=== PATIENT | female | born 1930 | race Caucasian/White ===

== ENCOUNTER 2021-10-07 11:52 | Emergency (ER) | payer MEDICARE, BC, OTHER ==
[~2021-10-07] VITALS: Ht 160 cm; Wt 57.2 kg
[2021-10-07] MEDS ORDERED: ACETAMINOPHEN 325 MG TAB PO ONE (12:45)
[2021-10-07] MEDS ORDERED: HYDROCODONE/APAP 5MG-325MG TAB PO ONE (14:45)
[2021-10-07] MEDS ORDERED: ONDANSETRON HCL 4 MG ORAL DISINTEGRATING TAB PO ONE (14:45)
== END 2021-10-07 16:27 | disposition home or self-care (01) ==
LOC: ER 12:16
DX: S70.01XA Contusion of right hip, initial encounter (principal); W01.0XXA Fall on same level from slipping, tripping and stumbling without subsequent striking against object, initial encounter; Y93.01 Activity, walking, marching and hiking; Y92.89 Other specified places as the place of occurrence of the external cause; I10 Essential (primary) hypertension; E11.9 Type 2 diabetes mellitus without complications
CPT/HCPCS: 72192; 73502; 99283; Q0162

== ENCOUNTER 2021-10-26 16:00 | Inpatient (IN) | payer MEDICARE, BC, OTHER ==
[~2021-10-26] VITALS: Ht 157.5 cm; Wt 57.2 kg
[2021-10-26] MEDS ORDERED: HYDROCODONE/APAP 5MG-325MG TAB PO ONE (19:00)
[2021-10-26] MEDS ORDERED: FENTANYL CITRATE/PF 100MCG/2 ML INJ IV ONE (19:15)
[2021-10-26] MEDS: ONDANSETRON HCL INJ 2MG/ML 2ML 2 MG/ML VIAL IV PRN (19:20)
[2021-10-26] MEDS ORDERED: Morphine 4mg INJECTION 4 MG/ML INJ IV PRN (19:30)
[2021-10-26] MEDS ORDERED: ONDANSETRON HCL INJ 2MG/ML 2ML 2 MG/ML VIAL IV PRN (19:30)
[2021-10-26] MEDS: HYDRALAZINE HCL 20 MG/ML VIAL IV PRN (20:11)
[2021-10-26 20:51] VITALS: BP 149/60
[2021-10-26 21:00] VITALS: BP_SYST 149
[2021-10-26] MEDS ORDERED: HEPARIN SOD (PORCINE) 5,000 UNIT/ML VIAL SC ONE (21:45)
[2021-10-26 23:59] VITALS: BP 152/65
[2021-10-27] VITALS (7 sets, daily range): BP systolic 115–169; BP diastolic 53–78
[2021-10-27] MEDS: HYDROMORPHONE 1MG/1ML INJ IV PRN ×3 (00:26→13:10)
[2021-10-27] MEDS ORDERED: METFORMIN HCL500 MG PO (03:49)
[2021-10-27] MEDS ORDERED: LOSARTAN POTAS100 MG PO (03:49)
[2021-10-27] MEDS ORDERED: VITAMIN B-12 51 EACH SL (03:49)
[2021-10-27 06:11] LABS: BASOPHILS % 0.5 % (0.0-1.0); EOSINOPHILS % 0.5 % (0.0-6.0); HEMATOCRIT 39.5 % (34.2-44.1); HEMOGLOBIN 12.6 g/dL (12.0-16.0); LYMPHOCYTES # (AUTO) 1.4 (1.0-3.2); LYMPHOCYTES % 21.6 % (18.0-39.1); MEAN CORPUSCULAR HGB CONC 31.9 g/dL (31-35); MEAN CORPUSCULAR VOLUME 97.3 fL (81-99); MONOCYTES # (AUTO) 0.8 (0.2-0.8); MONOCYTES % 12.4 % (4.4-11.3); NEUTROPHILS # (AUTO) 4.3 (2.1-6.9); NEUTROPHILS % 64.5 % (38.7-80.0); PLATELET COUNT 312 x10e3/uL (140-360); RED BLOOD COUNT 4.06 x10e6/uL (3.6-5.1); RED CELL DISTRIBUTION WIDTH 13.1 % (11.7-14.4)
[2021-10-27 06:24] LABS: INR 0.92; PARTIAL THROMBOPLASTIN TIME 27.4 seconds (23.8-35.5); PROTHROMBIN TIME 13.2 seconds (11.9-14.5)
[2021-10-27 07:09] LABS: ALBUMIN 3.4 g/dL (3.5-5.0); ANION GAP 14.8 mmol/L (8-16); CALCIUM 8.5 mg/dL (8.4-10.2); CREATININE, SERUM 1.2 mg/dL (0.57-1.11); POTASSIUM 4.8 mmol/L (3.5-5.1)
[2021-10-27] MEDS ORDERED: ACETAMINOPHEN 325 MG TAB PO PRN (10:30)
[2021-10-27] MEDS ORDERED: DOCUSATE SODIUM 100 MG CAP PO PRN (10:30)
[2021-10-27] MEDS ORDERED: DEXTROSE 50% SYRINGE 50 ML IV PRN (10:30)
[2021-10-27 10:54] LABS: CHOL/HDL RATIO 3.7 (3.0-3.6)
[2021-10-27] MEDS: METOPROLOL TARTRATE 25 MG TAB PO SCH ×2 (11:00→21:00)
[2021-10-27] MEDS ORDERED: SODIUM CHLORIDE 0.45% 1,000 ML IV ONE (11:00)
[2021-10-27] MEDS: INSULIN REGULAR, HUMAN 100 UNIT/1 ML SQ SCH ×3 (11:30→21:00)
[2021-10-27] MEDS: HYDRALAZINE HCL 20 MG/ML VIAL IV PRN (12:18)
[2021-10-27] MEDS: OYST-CAL-D 500MG TABLET PO SCH ×2 (15:00→21:00)
[2021-10-27] MEDS ORDERED: Vancomycin IV 1 GM VIAL ONE (20:34)
[2021-10-27] MEDS ORDERED: BUPIVACAINE 0.25% 30ML SDV ONE (20:35)
[2021-10-27] MEDS ORDERED: Vancomycin IV 500 MG ONE (20:35)
[2021-10-27] MEDS ORDERED: SODIUM CHLORIDE 0.9% 250ML 250 ML ONE (20:38)
[2021-10-27] MEDS ORDERED: SUGAMMADEX SODIUM 200 MG/2 ML VIAL IV ONE (20:38)
[2021-10-27] MEDS ORDERED: Vancomycin IV 1 GM in SODIUM CHLORIDE 0.9% 250ML 250 ML IV ONE (21:45)
[2021-10-28 00:28] VITALS: BP 135/63
[2021-10-28 04:30] VITALS: BP 112/53
[2021-10-28] MEDS: HYDROCODONE/APAP 5MG-325MG TAB PO PRN ×2 (04:45→16:35)
[2021-10-28 04:51] LABS: BASOPHILS % 0.1 % (0.0-1.0); HEMATOCRIT 35.2 % (34.2-44.1); HEMOGLOBIN 11.4 g/dL (12.0-16.0); LYMPHOCYTES # (AUTO) 0.5 (1.0-3.2); LYMPHOCYTES % 5.1 % (18.0-39.1); MEAN CORPUSCULAR HEMOGLOBIN 31.1 pg (28-32); MEAN CORPUSCULAR HGB CONC 32.4 g/dL (31-35); MEAN CORPUSCULAR VOLUME 96.2 fL (81-99); MONOCYTES # (AUTO) 0.9 (0.2-0.8); MONOCYTES % 8.3 % (4.4-11.3); NEUTROPHILS # (AUTO) 8.8 (2.1-6.9); PLATELET COUNT 251 x10e3/uL (140-360); RED BLOOD COUNT 3.66 x10e6/uL (3.6-5.1); RED CELL DISTRIBUTION WIDTH 13.2 % (11.7-14.4)
[2021-10-28 05:07] LABS: ANION GAP 17.1 mmol/L (8-16); CALCIUM 7.6 mg/dL (8.4-10.2); CREATININE, SERUM 1.16 mg/dL (0.57-1.11); POTASSIUM 4.1 mmol/L (3.5-5.1)
[2021-10-28] MEDS: ONDANSETRON HCL INJ 2MG/ML 2ML 2 MG/ML VIAL IV PRN (06:57)
[2021-10-28] MEDS: HYDROMORPHONE 1MG/1ML INJ IV PRN (06:57)
[2021-10-28] MEDS: INSULIN REGULAR, HUMAN 100 UNIT/1 ML SQ SCH ×4 (07:30→23:16)
[2021-10-28 08:24] VITALS: BP 122/56
[2021-10-28] MEDS: METOPROLOL TARTRATE 25 MG TAB PO SCH ×2 (09:00→23:11)
[2021-10-28] MEDS: MULTIVITAMINS/MINERALS TAB PO SCH (09:00)
[2021-10-28] MEDS: OYST-CAL-D 500MG TABLET PO SCH ×3 (09:00→23:11)
[2021-10-28 09:21] LABS: HEMATOCRIT 31.5 % (34.2-44.1); HEMOGLOBIN 10.3 g/dL (12.0-16.0); LYMPHOCYTES % 11.2 % (18.0-39.1); MEAN CORPUSCULAR HEMOGLOBIN 31.3 pg (28-32); MEAN CORPUSCULAR HGB CONC 32.7 g/dL (31-35); MEAN CORPUSCULAR VOLUME 95.7 fL (81-99); MONOCYTES # (AUTO) 1.2 (0.2-0.8); MONOCYTES % 13.7 % (4.4-11.3); NEUTROPHILS # (AUTO) 6.5 (2.1-6.9); NEUTROPHILS % 74.8 % (38.7-80.0); PLATELET COUNT 239 x10e3/uL (140-360); RED BLOOD COUNT 3.29 x10e6/uL (3.6-5.1); RED CELL DISTRIBUTION WIDTH 13.2 % (11.7-14.4)
[2021-10-28 09:43] LABS: CALCIUM 7.4 mg/dL (8.4-10.2); CREATININE, SERUM 1.24 mg/dL (0.57-1.11)
[2021-10-28 12:13] VITALS: BP 95/76
[2021-10-28 16:39] VITALS: BP 128/52
[2021-10-28 20:00] VITALS: BP 116/50
[2021-10-29] VITALS: BP 123/49
[2021-10-29 04:00] VITALS: BP 136/52
[2021-10-29 07:55] VITALS: BP 133/62
[2021-10-29] MEDS: INSULIN REGULAR, HUMAN 100 UNIT/1 ML SQ SCH ×2 (08:30→11:53)
[2021-10-29] MEDS ORDERED: COLACE100 M1 PO (09:13)
[2021-10-29] MEDS ORDERED: Multivitamins/Minerals PO (09:13)
[2021-10-29] MEDS ORDERED: LOPRESSOR25 MG PO (09:13)
[2021-10-29] MEDS ORDERED: BALSAM PERU/CASTOR OIL 60 GM OINT...G. TP PRN (10:00)
[2021-10-29] MEDS: OYST-CAL-D 500MG TABLET PO SCH (10:00)
[2021-10-29] MEDS: MULTIVITAMINS/MINERALS TAB PO SCH (10:00)
[2021-10-29] MEDS: METOPROLOL TARTRATE 25 MG TAB PO SCH (10:00)
[2021-10-29 11:45] VITALS: BP 129/56
[2021-10-29 12:55] VITALS: BP 129/56
== END 2021-10-29 12:02 | DRG 522 ==
LOC: ER 16:41 → ERHOLD 19:22 → MED/SURG 20:18
PROVIDERS: ADMIT Internal Medicine; ATTEND Internal Medicine
PROC: 0SRR01A Replacement of Right Hip Joint, Femoral Surface with Metal Synthetic Substitute, Uncemented, Open Approach (ICD-10-PCS; principal; 2021-10-27 19:43)
DX: S72.001A Fracture of unspecified part of neck of right femur, initial encounter for closed fracture (principal); W01.10XA Fall on same level from slipping, tripping and stumbling with subsequent striking against unspecified object, initial encounter; E11.9 Type 2 diabetes mellitus without complications; I10 Essential (primary) hypertension; Z20.822 Contact with and (suspected) exposure to COVID-19; Z79.84 Long term (current) use of oral hypoglycemic drugs
CPT/HCPCS: 0223U; 36415; 71045; 72131; 72170; 80048; 80053; 80061; 82948; 83036; 85025; 85610; 85730; 86850; 86900; 93005; 93306; 99284; C1713; C1776; J0360; J1170; J1644; J1817; J2270; J2405; J3010; J3370; J7050